=== PATIENT | female | born 1970 | race Caucasian/White ===

== ENCOUNTER → 2017-03-07 | Outpatient (REF) | LOC: LAB 08:19 | DX: N92.1 Excessive and frequent menstruation with irregular cycle (principal) ==

== ENCOUNTER → 2017-03-07 | Outpatient (CLI) | payer OTHER | LOC: LAB 08:31 → RAD 08:31 | DX: N92.1 Excessive and frequent menstruation with irregular cycle (principal); N83.202 Unspecified ovarian cyst, left side ==

== ENCOUNTER → 2017-07-10 | Outpatient (CLI) | payer OTHER | LOC: RAD 07-04 14:28 | DX: N63.10 Unspecified lump in the right breast, unspecified quadrant (principal) ==

== ENCOUNTER 2017-11-26 08:22 | Emergency (ER) | payer OTHER ==
[~2017-11-26] VITALS: Ht 177.8 cm; Wt 122.7 kg
[2017-11-26 11:03] LABS: PH-URINE 5.5 (5.0 - 8.0); URINE APPEARANCE HAZY; URINE BILIRUBIN NEGATIVE (NEGATIVE); URINE BLOOD TRACE (NEGATIVE); URINE COLOR YELLOW; URINE GLUCOSE NEGATIVE (NEGATIVE); URINE KETONE NEGATIVE (NEGATIVE); URINE LEUKOCYTE ESTERASE TRACE (NEGATIVE); URINE NITRATE NEGATIVE (NEGATIVE); URINE PROTEIN(semi-quant) TRACE mg/dL (NEGATIVE); URINE UROBILINOGEN NORMAL (NORMAL)
[2017-11-26] MEDS ORDERED: MACROBID 100 M100 MG PO (11:34)
[2017-11-26 11:45] VITALS: BP 127/71
== END 2017-11-26 11:45 | disposition home or self-care (01) ==
LOC: ED 08:22
PROVIDERS: Family Medicine
DX: R10.31 Right lower quadrant pain (principal); R10.32 Left lower quadrant pain; R30.0 Dysuria; Z85.3 Personal history of malignant neoplasm of breast

== ENCOUNTER 2017-12-24 17:21 | Emergency (ER) | payer OTHER ==
[~2017-12-24] VITALS: Ht 177.8 cm; Wt 118.2 kg
[~2017-12-24 17:21] MED LIST: MACROBID 100 M100 MG PO
[2017-12-24] MEDS ORDERED: PRILOSEC OTC20 MG PO (17:28)
[2017-12-24] MEDS ORDERED: CLARITIN 1010 MG/TAB PO (17:28)
[2017-12-24 18:23] LABS: HEMATOCRIT 25.9 % (37.0-47.0); HEMOGLOBIN 8.5 g/dL (12.5-16.0); MEAN CELL VOLUME 95 fl (78-100); MEAN CORPUSCULAR HEMOGLOBIN 31 pg (27-31); MEAN CORPUSCULAR HGB CONC 33 g/dL (33-37); PLATELET COUNT 128 K/mm3 (130-400); RED BLOOD COUNT 2.72 M/mm3 (4.10-5.30)
[2017-12-24 18:24] LABS: RED CELL DISTRIBUTION WIDTH 19.5 % (11.5-14.5); WHITE BLOOD COUNT 1.7 K/mm3 (4.8-10.8)
[2017-12-24] MEDS ORDERED: CEPHALEXIN500 M1 PO (18:48)
[2017-12-24] MEDS ORDERED: SEPTRA DS 8001 TAB PO (18:48)
[2017-12-24 18:50] LABS: BAND 5 % (0-10); LYMPHOCYTE 27 % (20-51); MONOCYTE 30 % (3-10); NEUTROPHILS 28 % (42-75)
[2017-12-24 18:54] LABS: MICROCYTOSIS 1+; OVALOCYTES 1+; POLYCHROMASIA 1+; TARGET CELLS 1+; TEAR DROP CELLS 1+
[2017-12-24 18:59] VITALS: BP 121/68
== END 2017-12-24 18:59 | disposition home or self-care (01) ==
LOC: ED 17:21
PROVIDERS: Family Medicine
DX: L03.313 Cellulitis of chest wall (principal); S20.362A Insect bite (nonvenomous) of left front wall of thorax, initial encounter; S20.361A Insect bite (nonvenomous) of right front wall of thorax, initial encounter; W57.XXXA Bitten or stung by nonvenomous insect and other nonvenomous arthropods, initial encounter; D70.1 Agranulocytosis secondary to cancer chemotherapy; T45.1X5A Adverse effect of antineoplastic and immunosuppressive drugs, initial encounter

== ENCOUNTER → 2018-01-30 | Outpatient (CLI) | payer OTHER ==
[~2018-01-30] MED LIST changes: +CEPHALEXIN500 M1 PO; +CLARITIN 1010 MG/TAB PO; +PRILOSEC OTC20 MG PO; +SEPTRA DS 8001 TAB PO
== END ==
LOC: RAD 07:06
DX: Z01.818 Encounter for other preprocedural examination (principal); C50.911 Malignant neoplasm of unspecified site of right female breast; Z17.1 Estrogen receptor negative status [ER-]; Z95.828 Presence of other vascular implants and grafts

== ENCOUNTER → 2019-02-20 | Outpatient (CLI) | payer OTHER | LOC: RAD 08:50 | DX: K76.0 Fatty (change of) liver, not elsewhere classified (principal); S32.039A Unspecified fracture of third lumbar vertebra, initial encounter for closed fracture; C50.211 Malignant neoplasm of upper-inner quadrant of right female breast; Z90.13 Acquired absence of bilateral breasts and nipples | CPT/HCPCS: Q9967 ==

== ENCOUNTER → 2020-02-27 | Outpatient (CLI) | payer OTHER | LOC: RAD 08:55 | DX: C50.211 Malignant neoplasm of upper-inner quadrant of right female breast (principal); Z90.710 Acquired absence of both cervix and uterus; K76.0 Fatty (change of) liver, not elsewhere classified; Z98.82 Breast implant status | CPT/HCPCS: Q9967 ==

== ENCOUNTER → 2020-03-05 | Outpatient (CLI) | payer OTHER | LOC: RAD 07:20 | DX: C50.919 Malignant neoplasm of unspecified site of unspecified female breast (principal); R60.0 Localized edema ==

== ENCOUNTER → 2020-08-26 | Outpatient (REF) | LOC: LAB 07:07 | DX: C50.211 Malignant neoplasm of upper-inner quadrant of right female breast (principal) ==

== ENCOUNTER → 2021-02-22 | Outpatient (REF) | LOC: LAB 08:22 | DX: C50.211 Malignant neoplasm of upper-inner quadrant of right female breast (principal) ==

== ENCOUNTER → 2021-02-24 | Outpatient (CLI) | payer OTHER | LOC: RAD 08:56 | DX: C50.211 Malignant neoplasm of upper-inner quadrant of right female breast (principal); K76.0 Fatty (change of) liver, not elsewhere classified; Z90.710 Acquired absence of both cervix and uterus; Z98.82 Breast implant status | CPT/HCPCS: Q9967 ==

== ENCOUNTER → 2021-03-12 | Outpatient (REF) | LOC: LAB 07:16 → EDSTATUS 07:17 | DX: E11.9 Type 2 diabetes mellitus without complications (principal); E78.5 Hyperlipidemia, unspecified; E03.9 Hypothyroidism, unspecified; N95.1 Menopausal and female climacteric states ==

== ENCOUNTER → 2021-04-01 | Outpatient (CLI) | payer BC | LOC: RAD 09:51 → MAMMO 10:00 | DX: Z13.820 Encounter for screening for osteoporosis (principal) ==

== ENCOUNTER → 2021-06-24 | Day surgery (SDC) | payer BC | LOC: MSO 07:09 | DX: Z12.11 Encounter for screening for malignant neoplasm of colon (principal); Z85.038 Personal history of other malignant neoplasm of large intestine; E11.9 Type 2 diabetes mellitus without complications; Z92.21 Personal history of antineoplastic chemotherapy; Z85.3 Personal history of malignant neoplasm of breast | CPT/HCPCS: 00812; J2704; J7120 ==

== ENCOUNTER → 2021-08-27 | Outpatient (CLI) | payer BC ==
[2021-08-27 10:04] LABS: BASO # 0.01 K/mm3 (0.02-0.10); EOS # 0.16 K/mm3 (0.04-0.40); EOS % 2.9 % (1.0-5.0); HEMATOCRIT 44.5 % (37.0-47.0); HEMOGLOBIN 14.9 g/dL (12.5-16.0); MEAN CELL VOLUME 89 fl (78-100); MEAN CORPUSCULAR HEMOGLOBIN 30 pg (27-31); MEAN CORPUSCULAR HGB CONC 34 g/dL (33-37); MEAN PLATELET VOLUME 8.8 fl (7.4-10.4); MONO # 0.34 K/mm3 (0.20-0.80); NEU # 3.31 K/mm3 (1.40-6.50); PLATELET COUNT 209 K/mm3 (130-400); RED BLOOD COUNT 5.03 M/mm3 (4.10-5.30); RED CELL DISTRIBUTION WIDTH 12.6 % (11.5-14.5); WHITE BLOOD COUNT 5.4 K/mm3 (4.8-10.8)
[2021-08-27 10:12] LABS: POTASSIUM 4.3 mmol/L (3.5-5.1)
[2021-08-27 10:13] LABS: CALCIUM 9.2 mg/dL (8.3-10.5)
[2021-08-27 10:15] LABS: TOTAL PROTEIN 6.6 g/dL (6.4-8.3)
[2021-08-27 10:16] LABS: TOTAL BILIRUBIN 0.5 mg/dL (0.2-1.2)
== END ==
LOC: LAB 07:19
PROVIDERS: Internal Medicine
DX: C50.211 Malignant neoplasm of upper-inner quadrant of right female breast (principal)

== ENCOUNTER → 2022-03-15 | Outpatient (CLI) | payer BC ==
[2022-03-15 07:41] LABS: BASO # 0.01 K/mm3 (0.02-0.10); EOS # 0.19 K/mm3 (0.04-0.40); EOS % 3.9 % (1.0-5.0); HEMATOCRIT 43.8 % (37.0-47.0); HEMOGLOBIN 14.8 g/dL (12.5-16.0); LYMPH# 1.47 K/mm3 (1.50-4.00); MEAN CELL VOLUME 85 fl (78-100); MEAN CORPUSCULAR HEMOGLOBIN 29 pg (27-31); MEAN CORPUSCULAR HGB CONC 34 g/dL (33-37); MEAN PLATELET VOLUME 8.4 fl (7.4-10.4); MONO # 0.36 K/mm3 (0.20-0.80); NEU # 2.84 K/mm3 (1.40-6.50); PLATELET COUNT 169 K/mm3 (130-400); RED BLOOD COUNT 5.14 M/mm3 (4.10-5.30); RED CELL DISTRIBUTION WIDTH 12.3 % (11.5-14.5); WHITE BLOOD COUNT 4.9 K/mm3 (4.8-10.8)
[2022-03-15 08:18] LABS: ALBUMIN 3.8 g/dL (3.5-5.0); POTASSIUM 3.9 mmol/L (3.5-5.1)
[2022-03-15 08:19] LABS: CALCIUM 9.1 mg/dL (8.3-10.5)
[2022-03-15 08:21] LABS: TOTAL PROTEIN 6.4 g/dL (6.4-8.3)
[2022-03-15 08:22] LABS: TOTAL BILIRUBIN 0.5 mg/dL (0.2-1.2)
== END ==
LOC: LAB 07:25
PROVIDERS: Internal Medicine
DX: C50.211 Malignant neoplasm of upper-inner quadrant of right female breast (principal)

== ENCOUNTER → 2022-03-18 | Outpatient (CLI) | payer BC | LOC: RAD 08:44 | DX: C50.211 Malignant neoplasm of upper-inner quadrant of right female breast (principal); K76.0 Fatty (change of) liver, not elsewhere classified; Z98.890 Other specified postprocedural states | CPT/HCPCS: Q9967 ==

== ENCOUNTER 2022-06-03 18:35 | Emergency (ER) | payer OTHER ==
[~2022-06-03] VITALS: Ht 180.3 cm; Wt 125.0 kg
[2022-06-03] MEDS ORDERED: RIOMET500 MG/51 PO (18:46)
[2022-06-03 19:37] VITALS: BP 130/95
== END 2022-06-03 19:45 | disposition home or self-care (01) ==
LOC: ED 18:35
DX: M54.2 Cervicalgia (principal); M25.511 Pain in right shoulder; Z98.890 Other specified postprocedural states; V43.62XA Car passenger injured in collision with other type car in traffic accident, initial encounter; Y92.410 Unspecified street and highway as the place of occurrence of the external cause

== ENCOUNTER → 2022-06-09 | Outpatient (CLI) | payer BC ==
[~2022-06-09] MED LIST changes: +RIOMET500 MG/51 PO
[2022-06-09 10:49] LABS: BASO # 0.02 K/mm3 (0.02-0.10); EOS # 0.17 K/mm3 (0.04-0.40); EOS % 3.5 % (1.0-5.0); HEMATOCRIT 45.1 % (37.0-47.0); HEMOGLOBIN 15.4 g/dL (12.5-16.0); LYMPH# 1.69 K/mm3 (1.50-4.00); MEAN CELL VOLUME 86 fl (78-100); MEAN CORPUSCULAR HEMOGLOBIN 30 pg (27-31); MEAN CORPUSCULAR HGB CONC 34 g/dL (33-37); MEAN PLATELET VOLUME 8.4 fl (7.4-10.4); MONO # 0.33 K/mm3 (0.20-0.80); NEU # 2.66 K/mm3 (1.40-6.50); PLATELET COUNT 185 K/mm3 (130-400); RED BLOOD COUNT 5.22 M/mm3 (4.10-5.30); RED CELL DISTRIBUTION WIDTH 12.3 % (11.5-14.5); WHITE BLOOD COUNT 4.9 K/mm3 (4.8-10.8)
[2022-06-09 10:54] LABS: ALBUMIN 4.1 g/dL (3.5-5.0); POTASSIUM 4.2 mmol/L (3.5-5.1)
[2022-06-09 10:55] LABS: CALCIUM 9.7 mg/dL (8.3-10.5)
[2022-06-09 10:59] LABS: TOTAL BILIRUBIN 0.4 mg/dL (0.2-1.2)
== END ==
LOC: LAB 10:32
PROVIDERS: Physician Assistant
DX: Z00.00 Encounter for general adult medical examination without abnormal findings (principal); Z13.29 Encounter for screening for other suspected endocrine disorder; Z23 Encounter for immunization; N32.81 Overactive bladder; K21.9 Gastro-esophageal reflux disease without esophagitis; E11.9 Type 2 diabetes mellitus without complications; E78.5 Hyperlipidemia, unspecified; K90.9 Intestinal malabsorption, unspecified

== ENCOUNTER → 2022-09-07 | Outpatient (CLI) | payer BC ==
[2022-09-07 08:27] LABS: BASO # 0.01 K/mm3 (0.02-0.10); EOS # 0.24 K/mm3 (0.04-0.40); EOS % 3.9 % (1.0-5.0); HEMATOCRIT 44.5 % (37.0-47.0); HEMOGLOBIN 15.1 g/dL (12.5-16.0); LYMPH# 1.78 K/mm3 (1.50-4.00); MEAN CELL VOLUME 85 fl (78-100); MEAN CORPUSCULAR HEMOGLOBIN 29 pg (27-31); MEAN CORPUSCULAR HGB CONC 34 g/dL (33-37); MEAN PLATELET VOLUME 8.4 fl (7.4-10.4); MONO # 0.36 K/mm3 (0.20-0.80); NEU # 3.73 K/mm3 (1.40-6.50); PLATELET COUNT 213 K/mm3 (130-400); RED BLOOD COUNT 5.22 M/mm3 (4.10-5.30); RED CELL DISTRIBUTION WIDTH 12.5 % (11.5-14.5); WHITE BLOOD COUNT 6.1 K/mm3 (4.8-10.8)
[2022-09-07 08:34] LABS: ALBUMIN 4.2 g/dL (3.5-5.0); POTASSIUM 4.1 mmol/L (3.5-5.1)
[2022-09-07 08:35] LABS: CALCIUM 9.7 mg/dL (8.3-10.5)
[2022-09-07 08:36] LABS: TOTAL PROTEIN 7.1 g/dL (6.4-8.3)
[2022-09-07 08:38] LABS: TOTAL BILIRUBIN 0.6 mg/dL (0.2-1.2)
== END ==
LOC: LAB 08:14
PROVIDERS: Internal Medicine
DX: C50.211 Malignant neoplasm of upper-inner quadrant of right female breast (principal)

== ENCOUNTER → 2022-09-21 | Outpatient (CLI) | payer BC ==
[2022-09-21 11:14] LABS: URINE APPEARANCE CLEAR; URINE BILIRUBIN NEGATIVE (NEGATIVE); URINE BLOOD TRACE (NEGATIVE); URINE COLOR LT YELLOW; URINE GLUCOSE NEGATIVE (NEGATIVE); URINE KETONE NEGATIVE (NEGATIVE); URINE LEUKOCYTE ESTERASE NEGATIVE (NEGATIVE); URINE NITRATE NEGATIVE (NEGATIVE); URINE PROTEIN(semi-quant) TRACE (NEGATIVE); URINE UROBILINOGEN NORMAL (NORMAL)
== END ==
LOC: LAB 10:17
PROVIDERS: Nurse Practitioner Family
DX: R30.0 Dysuria (principal)

== ENCOUNTER → 2022-10-12 | Outpatient (CLI) | payer BC ==
[2022-10-12 07:53] LABS: BASO # 0.01 K/mm3 (0.02-0.10); EOS # 0.13 K/mm3 (0.04-0.40); HEMATOCRIT 42.8 % (37.0-47.0); HEMOGLOBIN 14.2 g/dL (12.5-16.0); LYMPH# 1.52 K/mm3 (1.50-4.00); MEAN CELL VOLUME 87 fl (78-100); MEAN CORPUSCULAR HEMOGLOBIN 29 pg (27-31); MEAN CORPUSCULAR HGB CONC 33 g/dL (33-37); MEAN PLATELET VOLUME 8.8 fl (7.4-10.4); MONO # 0.28 K/mm3 (0.20-0.80); NEU # 1.33 K/mm3 (1.40-6.50); PLATELET COUNT 164 K/mm3 (130-400); RED BLOOD COUNT 4.94 M/mm3 (4.10-5.30); RED CELL DISTRIBUTION WIDTH 12.6 % (11.5-14.5); WHITE BLOOD COUNT 3.3 K/mm3 (4.8-10.8)
[2022-10-12 07:56] LABS: ALBUMIN 3.7 g/dL (3.5-5.0)
[2022-10-12 07:57] LABS: POTASSIUM 3.9 mmol/L (3.5-5.1)
[2022-10-12 07:58] LABS: CALCIUM 9.3 mg/dL (8.3-10.5)
[2022-10-12 07:59] LABS: TOTAL PROTEIN 6.3 g/dL (6.4-8.3)
[2022-10-12 08:01] LABS: TOTAL BILIRUBIN 0.3 mg/dL (0.2-1.2)
== END ==
LOC: LAB 07:39
PROVIDERS: Internal Medicine
DX: C50.919 Malignant neoplasm of unspecified site of unspecified female breast (principal)

== ENCOUNTER 2024-02-22 07:53 | Outpatient (RCR) | payer BC | END 2024-03-23 | disposition home or self-care (01) | LOC: PT | DX: Z98.890 Other specified postprocedural states (principal) ==

== ENCOUNTER → 2024-02-29 | Outpatient (CLI) | payer BC | LOC: LAB 08:50 | DX: E11.9 Type 2 diabetes mellitus without complications (principal) ==

== ENCOUNTER 2024-03-26 08:00 | Outpatient (RCR) | payer BC | END 2024-04-22 | disposition home or self-care (01) | LOC: PT | DX: Z98.890 Other specified postprocedural states (principal) ==

== ENCOUNTER → 2024-04-19 | Outpatient (CLI) | payer BC ==
[2024-04-19 07:45] LABS: BASO # 0.01 K/mm3 (0.02-0.10); EOS # 0.19 K/mm3 (0.04-0.40); EOS % 3.3 % (1.0-5.0); HEMATOCRIT 42.4 % (37.0-47.0); HEMOGLOBIN 14.3 g/dL (12.5-16.0); LYMPH# 1.83 K/mm3 (1.50-4.00); MEAN CELL VOLUME 86 fl (78-100); MEAN CORPUSCULAR HEMOGLOBIN 29 pg (27-31); MEAN CORPUSCULAR HGB CONC 34 g/dL (33-37); MONO # 0.41 K/mm3 (0.20-0.80); NEU # 3.39 K/mm3 (1.40-6.50); PLATELET COUNT 181 K/mm3 (130-400); RED BLOOD COUNT 4.94 M/mm3 (4.10-5.30); RED CELL DISTRIBUTION WIDTH 12.5 % (11.5-14.5); WHITE BLOOD COUNT 5.8 K/mm3 (4.8-10.8)
[2024-04-19 08:00] LABS: CALCIUM 9.6 mg/dL (8.3-10.5)
[2024-04-19 08:02] LABS: TOTAL PROTEIN 6.5 g/dL (6.4-8.3)
[2024-04-19 08:03] LABS: TOTAL BILIRUBIN 0.7 mg/dL (0.2-1.2)
== END ==
LOC: LAB 07:26
PROVIDERS: Internal Medicine
DX: C50.211 Malignant neoplasm of upper-inner quadrant of right female breast (principal)

== ENCOUNTER 2024-04-24 08:00 | Outpatient (RCR) | payer BC | END 2024-05-23 | disposition home or self-care (01) | LOC: PT | DX: Z98.890 Other specified postprocedural states (principal) ==